=== PATIENT | male | born 1965 | race Caucasian/White ===

== ENCOUNTER → 2018-04-20 14:07 | Outpatient (CLI) | payer BC, SELFPAY ==
--- NOTE | 2018-04-20 14:09 | DI.RAD.S_ITS ---
PROCEDURE: XR CHEST 2V INDICATIONS: diffuse BL wheeze, please R/O consolidation TECHNIQUE: 2 views of the chest were acquired. COMPARISON: None. FINDINGS: Surgical changes and devices: None. Lungs and pleura: No pleural effusions or pneumothorax. Lungs are clear. Mediastinum: Mediastinal contours are normal. Heart size is normal. Bones and chest wall: No suspicious bony abnormalities. Soft tissues appear unremarkable. IMPRESSION: Normal for age, source of current symptoms is not seen. Dictated by: Donald Meraz M.D. on 04/20/2018 at 14:30 Approved by: Donald Meraz M.D. on 04/20/2018 at 14:30
== END ==
PROVIDERS: Family Provider Family Medicine; PCP Family Medicine; Visit Provider Physician Assistant
DX: R06.2 Wheezing (principal)
CPT/HCPCS: 71046

== ENCOUNTER 2018-08-20 08:59 | Emergency (ER) | payer BC, SELFPAY ==
[2018-08-20 09:10] VITALS: BP 147/94; PULSE 65; RESP 16; TEMP 36.6; O2SAT 99; BMI 31.7
--- NOTE | 2018-08-20 09:11 | DI.US.S_ITS ---
PROCEDURE: US PERIPH VENOUS LOW EXTREM RT INDICATIONS: redness TECHNIQUE: Real-time imaging, as well as color and pulse Doppler interrogation, were performed of the lower extremity deep veins from the inguinal ligament to the popliteal fossa. COMPARISON: None. FINDINGS: The deep veins are normally compressible, and free of intraluminal thrombus. Color and pulse Doppler demonstrate normal phasic intraluminal flow. There is normal augmentation response to distal compression maneuver. IMPRESSION: Negative for deep venous thrombosis. Dictated by: Shaun Damian M.D. on 08/20/2018 at 8:58 Approved by: Shaun Damian M.D. on 08/20/2018 at 8:58
--- NOTE | 2018-08-20 09:16 | ED_ITS ---
HPI - Extremity Injury (Lower) General Chief Complaint: Extremity Injury, Lower Stated Complaint: POSSIBLE BLOOD CLOT RIGHT LEG Time Seen by Provider: 08/20/18 09:15 Source: patient Mode of arrival: ambulatory Limitations: no limitations History of Present Illness HPI Narrative: Patient is a 52-year-old male here for evaluation of a possible blood clot in his right lower extremity. Patient states that almost 40 years ago he fractured his right femur which has healed. He also states that several years ago he had a right total knee arthroplasty. He states that a couple days ago he started having pain in his calf. This was occasional pain. He also states that he has had tingling in his right foot from the ankle to his toes. This tingling is circumferential. Patient also states that he has seen dilated superficial veins on his right lower extremity. He states that secondary to his prior femur and knee history he was concern for a blood clot in his right lower extremity. No recent travel. He has never had a blood clot the past. No shortness of breath or chest pain. Related Data Previous Rx's Medication Instructions Recorded benzonatate 100 mg capsule 100 mg PO TID PRN #30 cap 04/20/18 ipratropium bromide 17 2 puff INHALATION QID #12.9 gram 04/20/18 mcg/actuation HFA aerosol inhaler Allergies Allergy/AdvReac Type Severity Reaction Status Date / Time No Known Drug Allergies Allergy Verified 08/20/18 09:10 Review of Systems Constitutional Denies fever(s), Denies headache(s), Denies lethargy and Denies weakness ENT Ears, Nose, Mouth, and Throat: Denies dizziness, Denies headache(s) and Denies disequilibrium Cardiovascular Denies chest pain, Denies palpitations and Denies dyspnea Respiratory Denies cough and Denies dyspnea Gastrointestinal Gastrointestinal: Denies abdominal pain, Denies diarrhea, Denies nausea and Denies vomiting Genitourinary Denies dysuria Musculoskeletal Denies myalgias, Denies arthralgias, Denies numbness and Reports tingling ( Right foot) Comments: Right occasional calf pain, cramping Integumentary/Breasts Denies lesions and Denies rash Neurologic Denies dizziness, Denies headache(s), Denies numbness, Reports tingling (Right foot), Denies disequilibrium and Denies weakness Endocrine Denies palpitations Hematologic/Lymphatic Denies easy bleeding and Denies easy bruising [facility] Medical History Healthy adult (Acute) Surgical History History of total knee arthroplasty (Acute) No pertinent past surgical history (Acute) Exam Initial Vital Signs Initial Vital Signs: Vital Signs Temperature 97.8 F 08/20/18 09:10 Pulse Rate 65 08/20/18 09:10 Respiratory Rate 16 08/20/18 09:10 Blood Pressure 147/94 H 08/20/18 09:10 Pulse Oximetry 99 08/20/18 09:10 Const General: cooperative, healthy appearing, comfortable, well developed, well groomed and No acute distress Orientation: alert and oriented x3 HENMT Head: normal to inspection, normocephalic and atraumatic Resp Effort & Inspection: normal respiratory effort Cardio Pulses: dorsalis pedis present on the right Other: Patient with multiple varicose veins right lower extremity Skin Lesions: no lesions Rashes: no rashes Neuro Motor: muscle tone normal throughout Sensory Exam: no sensory deficits noted Extrem General: normal to inspection, capillary refill normal, no pedal edema, no calf tenderness (No calf tenderness on the right on my exam today) and No calf tenderness Psych Appearance: grossly normal and well kempt Course Orders Ordered: ED Orders 08/20/18 09:11 US [facility] venous low extrem rt Stat Vital Signs - 8 hr 08/20/18 11:03 08/20/18 11:06 Pulse Rate 81 Pulse Rate [Bilateral Radial] 84 Respiratory Rate 18 Blood Pressure [Right Arm] 156/87 H Pulse Oximetry 98 MDM - Extremity Injury (Lower) Imaging Data Venous US: Radiologist's impression: PROCEDURE: US [facility] VENOUS LOW EXTREM RT INDICATIONS: redness TECHNIQUE: Real-time imaging, as well as color and pulse Doppler interrogation, were performed of the lower extremity deep veins from the inguinal ligament to the popliteal fossa. COMPARISON: None. FINDINGS: The deep veins are normally compressible, and free of intraluminal thrombus. Color and pulse Doppler demonstrate normal phasic intraluminal flow. There is normal augmentation response to distal compression maneuver. IMPRESSION: Negative for deep venous thrombosis. Dictated by: Shaun Damian M.D. on 08/20/2018 at 8:58 Approved by: Shaun Damian M.D. on 08/20/2018 at 8:58 MDM Narrative Medical decision making narrative: No proximal right lower extremity DVT on ultrasound. Patient had no calf tenderness today and no objective neurologic findings. No trauma. Doubt fractures. He does have multiple varicose veins in his right lower extremity. We did discuss this. I feel that it is unlikely that he has a DVT in his right calf. He has no swelling. No pain today and is only occasional pain when it does come on. He is neurovascularly intact. Informed the patient he needed to discuss the paresthesias with his primary care doctor. He states that he is not diabetic. Will hold on further workup for now. He was given return precautions. All questions answered. He expressed understanding and agreement plan. Discharge Plan Departure Patient Disposition: Home Clinical Impression: Right leg paresthesias Discharge Date/Time: 08/20/18 11:07 Interventions: ED Discharge Assessment Last Done: 08/20/18 11:06 Instructions: DI for Numbness/tingling Activity Restrictions/Additional Instructions: Recommend that you continue all of your medications. Also recommend that you may contact with your new primary doctor over in the clinic. Follow up with this primary doctor to discuss further workup of your paresthesias. Return to the emergency department for any new or worsening symptoms Prescriptions: No Action benzonatate 100 mg capsule 100 mg PO TID PRN (Reason: cough) Qty: 30 RF: 0 ipratropium bromide 17 mcg/actuation HFA aerosol inhaler 2 puff INHALATION QID Qty: 12.9 RF: 0
[2018-08-20 11:03] VITALS: PULSE 84
[2018-08-20 11:06] VITALS: BP 156/87; PULSE 81; RESP 18; O2SAT 98
== END 2018-08-20 11:07 | disposition home or self-care (01) ==
PROVIDERS: Emergency Provider Emergency Medicine; Family Provider Family Medicine; PCP Family Medicine
DX: R20.2 Paresthesia of skin (principal)
CPT/HCPCS: 93971; 99282; 99284

== ENCOUNTER → 2018-08-22 13:21 | Outpatient (CLI) | payer BC, SELFPAY ==
[2018-08-22 14:02] LABS: Add Manual Diff / Slide Review NO; Basophils Percent Auto 0.9 % (0-2); Eosinophils Percent Auto 2.1 % (2-4); Hematocrit 41.8 % (41-53); Hemoglobin 14.2 g/dL (13.5-17.5); Lymphocytes Percent Auto 22.6 % (25-40); Mean Corpuscular Hemoglobin 31.2 PG (26-34); Mean Corpuscular Volume 91.5 fL (80-100); Monocytes Percent Auto 10.3 % (3-14); Neutrophils Absolute Auto 3900 /uL (3000-5900); Neutrophils Percent Auto 64.1 % (50-75); Platelet Count 333 X10^3/uL (150-400); Red Blood Cell Count 4.56 X10^6/uL (4.5-5.9); White Blood Cell Count 6.2 X10^3/uL (4.5-11.0)
[2018-08-22 14:10] LABS: Hemoglobin A1C% w Est Avg Glu 5.4 % (4.0-6.0)
[2018-08-22 14:24] LABS: Alanine Aminotransferase 31 IU/L (21-72); Albumin 4.6 g/dL (3.5-5.0); Albumin Globulin Ratio 1.7 (1.0-2.8); Alkaline Phosphatase 61 U/L (38-126); Aspartate Aminotransferase 32 IU/L (17-59); Bilirubin Unconjugated 0.7 mg/dL (0.0-1.1); Blood Urea Nitrogen 16 mg/dL (9-20); Calcium 9.6 mg/dL (8.4-10.2); Carbon Dioxide 28 mmol/L (22-32); Chloride 102 mmol/L (98-107); Cholesterol 203 mg/dL (140-199); Estimated Glomerular Filt Rate > 60.0 mL/min (>60); Globulin 2.7 g/dL (1.7-4.1); Glucose 99 mg/dL (70-100); HDL Cholesterol 88 mg/dL (40-60); HEMOLYSIS < 15 (0-50); LDL Cholesterol Calculated 98 mg/dL (<100); Potassium 3.8 mmol/L (3.4-5.1); Sodium 140 mmol/L (137-145); Total Protein 7.3 g/dL (6.3-8.2); Triglycerides 84 mg/dL (35-150); Uric Acid 6.7 mg/dL (3.5-8.5)
== END ==
PROVIDERS: PCP Family Medicine; Visit Provider Nurse Practitioner Family
DX: Z00.00 Encounter for general adult medical examination without abnormal findings (principal)
CPT/HCPCS: 36415; 80053; 80061; 80076; 83036; 84550; 85025

== ENCOUNTER → 2018-09-29 13:41 | Outpatient (CLI) | payer BC, SELFPAY ==
--- NOTE | 2018-09-29 13:42 | DI.US.S_ITS ---
PROCEDURE: US ARTERIAL DUPLEX LE RT INDICATIONS: Calf pain TECHNIQUE: Color and pulse Doppler interrogation was performed of the right than the lower extremity arterial system, with image documentation. COMPARISON: [facility], , PERIP VENOUS LOW EXTREM RT, 09/29/2018, 14:42. FINDINGS: Common femoral artery: 102 cm/sec, with triphasic flow. Deep femoral artery: 76 cm/sec, with triphasic flow. Proximal superficial femoral artery: 76 cm/sec, with triphasic flow. Mid superficial femoral artery: 66 cm/sec, with triphasic flow. Distal superficial femoral artery: Occluded. Popliteal artery: Taoist of blood flow, with a flow velocity of 27 cm/sec, with monophasic flow. Posterior tibial artery: 48 cm/sec, with biphasic flow. Anterior tibial artery/dorsalis pedis: 60 cm/sec, with monophasic flow. Lee-scale imaging description: There is an occlusion seen within the right distal superficial femoral artery, with the appearance of an embolus. IMPRESSION: There is an occlusion seen within the distal right superficial femoral artery, which is attributed to an embolus. There is islam of flow seen at the level of the popliteal artery. Note: Findings relayed to Dr. Gunn via office staff, Sara, at 4:50 PM [place] time on September 29, 2018. Dictated by: Shaun Damian M.D. on 09/29/2018 at 15:45 Approved by: Shaun Damian M.D. on 09/29/2018 at 15:51
--- NOTE | 2018-09-29 13:42 | DI.US.S_ITS ---
PROCEDURE: US PERIP VENOUS LOW EXTREM RT INDICATIONS: Calf pain TECHNIQUE: Real-time imaging, as well as color and pulse Doppler interrogation, were performed of the lower extremity deep veins from the inguinal ligament to the popliteal fossa. COMPARISON: [facility], ARTERIAL DUPLEX LE RT, 09/29/2018, 14:52. [facility], US PERIP VENOUS LOW EXTREM RT, 08/20/2018, 9:33. FINDINGS: The deep veins are normally compressible, and free of intraluminal thrombus. Color and pulse Doppler demonstrate normal phasic intraluminal flow. There is normal augmentation response to distal compression maneuver. IMPRESSION: Negative for deep venous thrombosis. Dictated by: Shaun Damian M.D. on 09/29/2018 at 15:45 Approved by: Shaun Damian M.D. on 09/29/2018 at 15:45
== END ==
PROVIDERS: Family Provider Family Medicine; PCP Family Medicine; Visit Provider Student in an Organized Health Care Education/Training Program
DX: I74.3 Embolism and thrombosis of arteries of the lower extremities (principal); I73.9 Peripheral vascular disease, unspecified; M79.661 Pain in right lower leg
CPT/HCPCS: 93926; 93971

== ENCOUNTER → 2019-05-29 15:17 | Outpatient (CLI) | payer BC, SELFPAY | PROVIDERS: Family Provider Family Medicine; PCP Student in an Organized Health Care Education/Training Program; Visit Provider Registered Nurse | DX: M20.40 Other hammer toe(s) (acquired), unspecified foot (principal) | CPT/HCPCS: 87070; 87075; 87077; 87186; 87205 ==

== ENCOUNTER → 2019-05-29 16:01 | Outpatient (CLI) | payer BC, SELFPAY ==
--- NOTE | 2019-05-29 16:04 | DI.RAD.S_ITS ---
PROCEDURE: XR TOE RT MIN 2V INDICATIONS: R/o osteomyelitis TECHNIQUE: 3 views of the first toe(s) acquired. COMPARISON: None. FINDINGS: Bones: No fractures or dislocations. No suspicious bony lesions. Soft tissues: No suspicious soft tissue densities. IMPRESSION: No bony erosions. X-ray is not sensitive for early osteomyelitis. If clinical suspicion is high, MRI with and without contrast or a triple phase bone scan is suggested for further evaluation. Dictated by: Lorenzo Gerardo M.D. on 05/29/2019 at 16:26 Approved by: Lorenzo Gerardo M.D. on 05/29/2019 at 16:27
== END ==
PROVIDERS: PCP Student in an Organized Health Care Education/Training Program; Visit Provider Student in an Organized Health Care Education/Training Program
DX: L08.9 Local infection of the skin and subcutaneous tissue, unspecified (principal); M79.674 Pain in right toe(s); M20.40 Other hammer toe(s) (acquired), unspecified foot
CPT/HCPCS: 73660; 87070; 87077; 87186; 87205

== ENCOUNTER → 2019-06-18 11:54 | Outpatient (CLI) | payer BC, SELFPAY ==
[2019-06-18 12:26] LABS: Add Manual Diff / Slide Review NO; Basophils Absolute Auto 100 /uL (0-100); Basophils Percent Auto 1.3 % (0-2); Eosinophils Absolute Auto 200 /uL (0-450); Eosinophils Percent Auto 3.5 % (2-4); Hematocrit 39.6 % (41-53); Hemoglobin 13.3 g/dL (13.5-17.5); Lymphocytes Absolute Auto 1400 /uL (1100-4500); Lymphocytes Percent Auto 26.1 % (25-40); Mean Corpuscular HGB Conc 33.7 % (30-36); Mean Corpuscular Hemoglobin 30.9 PG (26-34); Mean Corpuscular Volume 91.6 fL (80-100); Monocytes Absolute Auto 600 /uL (0-900); Monocytes Percent Auto 10.6 % (3-14); Neutrophils Absolute Auto 3200 /uL (1500-7000); Neutrophils Percent Auto 58.5 % (50-75); Platelet Count 295 X10^3/uL (150-400); Red Blood Cell Count 4.32 X10^6/uL (4.5-5.9); Red Cell Distribution Width 14.3 % (11.6-14.8); White Blood Cell Count 5.4 X10^3/uL (4.5-11.0)
[2019-06-18 12:32] LABS: Hemoglobin A1C% w Est Avg Glu 5.3 % (4.0-6.0)
[2019-06-18 12:42] LABS: Erythrocyte Sedimentation Rate 6 MM/HR (0-15)
[2019-06-18 13:07] LABS: BUN Creatinine Ratio 17.5 (6-22); Blood Urea Nitrogen 14 mg/dL (9-20); C-Reactive Protein Quant 0.6 mg/dL (<1.0); Calcium 9.5 mg/dL (8.4-10.2); Carbon Dioxide 28 mmol/L (22-32); Chloride 103 mmol/L (98-107); Estimated Glomerular Filt Rate > 60.0 mL/min (>60); Glucose 88 mg/dL (70-100); HEMOLYSIS < 15 (0-50); Potassium 4.2 mmol/L (3.4-5.1); Sodium 140 mmol/L (137-145)
== END ==
PROVIDERS: PCP Student in an Organized Health Care Education/Training Program; Visit Provider Podiatrist
DX: S91.302A Unspecified open wound, left foot, initial encounter (principal)
CPT/HCPCS: 36415; 80048; 83036; 85025; 85651; 86140

== ENCOUNTER → 2019-06-24 14:22 | Outpatient (CLI) | payer BC, SELFPAY | PROVIDERS: PCP Student in an Organized Health Care Education/Training Program; Visit Provider Family Medicine | DX: S91.301A Unspecified open wound, right foot, initial encounter (principal); L89.893 Pressure ulcer of other site, stage 3; I74.3 Embolism and thrombosis of arteries of the lower extremities; I70.211 Atherosclerosis of native arteries of extremities with intermittent claudication, right leg | CPT/HCPCS: 11042; 87070; 87075; 87077; 87186; 87205; 93922; 99203; 99214 ==

== ENCOUNTER → 2019-07-01 10:00 | Outpatient (CLI) | payer BC, SELFPAY | PROVIDERS: PCP Student in an Organized Health Care Education/Training Program; Visit Provider Family Medicine | DX: L89.893 Pressure ulcer of other site, stage 3 (principal) | CPT/HCPCS: 99212; 99213 ==

== ENCOUNTER → 2019-07-08 09:03 | Outpatient (CLI) | payer BC, SELFPAY | PROVIDERS: PCP Student in an Organized Health Care Education/Training Program; Visit Provider Family Medicine | DX: L89.893 Pressure ulcer of other site, stage 3 (principal); M20.41 Other hammer toe(s) (acquired), right foot; M79.671 Pain in right foot; I74.3 Embolism and thrombosis of arteries of the lower extremities | CPT/HCPCS: 11042 ==

== ENCOUNTER → 2019-07-15 10:08 | Outpatient (CLI) | payer BC, SELFPAY | PROVIDERS: PCP Student in an Organized Health Care Education/Training Program; Visit Provider Family Medicine | DX: S91.301A Unspecified open wound, right foot, initial encounter (principal); L89.893 Pressure ulcer of other site, stage 3; I74.3 Embolism and thrombosis of arteries of the lower extremities; I70.211 Atherosclerosis of native arteries of extremities with intermittent claudication, right leg | CPT/HCPCS: 97597 ==

== ENCOUNTER → 2019-07-22 06:29 | Outpatient (CLI) | payer BC, SELFPAY ==
--- NOTE | 2019-07-22 | DI.MRI.S_ITS ---
PROCEDURE: MR FOOT RT WO/W CON INDICATIONS: UNSPECIFIED OPEN WOUND,RIGHT FOOT TECHNIQUE: Noncontrast sagittal T1 spin echo and T2 fast spin echo with fat saturation, long-axis T1 spin echo and T2 fast spin echo with fat saturation; short-axis T1 spin echo, proton density fast spin echo, and T2 fast spin echo with fat saturation through the forefoot. Post-contrast short axis, long axis, and sagittal T1 spin echo with fat saturation through the forefoot. COMPARISON: [facility], CR, XR TOE(S) RIGHT, 06/17/2019, 15:53. [facility], CR, XR TOE RT MIN 2V, 05/29/2019, 16:05. FINDINGS: Image quality: Diagnostic. Bones and joints: No acute fracture, dislocation, or suspicious osseous lesion is identified involving the osseous structures of the midfoot or hindfoot. There are moderate degenerative changes present involving the tarsometatarsal joints with areas of degenerative marrow edema/reactive marrow changes. There are also mild degenerative changes involving the tarsonavicular and metatarsophalangeal joints. No definite osseous erosions are appreciated. No significant joint effusions are evident. No suspicious osseous enhancement is identified on the postcontrast images. Soft tissues: Mild soft tissue edema about the forefoot is identified. No drainable or loculated fluid collections are appreciated. There is no significant atrophy involving the intrinsic muscles of the foot. The flexor and extensor tendons of the midfoot and forefoot appear to be within normal limits. However, there may be mild distal anterior tibialis tendinopathy. The Lisfranc ligament is intact. No soft tissue masses or suspicious soft tissue enhancement is identified. No significant atrophy involving the intrinsic muscles of the foot are evident. IMPRESSION: 1. Mild soft tissue edema of the right foot may represent cellulitis. No abscess is evident. 2. No convincing evidence of osteomyelitis. 3. Mild to moderate degenerative changes of the midfoot and forefoot joints are more prominent involving the tarsometatarsal joints with areas of moderate reactive/degenerative marrow edema present. Dictated by: Johann Palmer M.D. on 07/22/2019 at 11:16 Approved by: Johann Palmer M.D. on 07/22/2019 at 11:20
== END ==
PROVIDERS: PCP Student in an Organized Health Care Education/Training Program; Visit Provider Family Medicine
DX: S91.301A Unspecified open wound, right foot, initial encounter (principal)
CPT/HCPCS: 73720; A9579

== ENCOUNTER → 2019-07-29 08:39 | Outpatient (CLI) | payer BC, SELFPAY | PROVIDERS: PCP Student in an Organized Health Care Education/Training Program; Visit Provider Family Medicine | DX: S91.301A Unspecified open wound, right foot, initial encounter (principal); L89.893 Pressure ulcer of other site, stage 3; I74.3 Embolism and thrombosis of arteries of the lower extremities; I70.211 Atherosclerosis of native arteries of extremities with intermittent claudication, right leg; L03.115 Cellulitis of right lower limb | CPT/HCPCS: 97597; 99214 ==

== ENCOUNTER → 2019-08-05 09:34 | Outpatient (CLI) | payer BC, SELFPAY | PROVIDERS: PCP Student in an Organized Health Care Education/Training Program; Visit Provider Family Medicine | DX: L89.893 Pressure ulcer of other site, stage 3 (principal); I74.3 Embolism and thrombosis of arteries of the lower extremities; I70.211 Atherosclerosis of native arteries of extremities with intermittent claudication, right leg | CPT/HCPCS: 97597 ==

== ENCOUNTER → 2019-08-11 09:34 | Outpatient (CLI) | payer BC, SELFPAY | PROVIDERS: PCP Student in an Organized Health Care Education/Training Program; Visit Provider Family Medicine | DX: L89.893 Pressure ulcer of other site, stage 3 (principal); I74.3 Embolism and thrombosis of arteries of the lower extremities | CPT/HCPCS: 97597; 99213 ==

== ENCOUNTER → 2019-08-21 09:22 | Outpatient (CLI) | payer BC, SELFPAY ==
[2019-08-21 10:03] LABS: Add Manual Diff / Slide Review NO; Basophils Absolute Auto 100 /uL (0-100); Basophils Percent Auto 1.3 % (0-2); Eosinophils Absolute Auto 200 /uL (0-450); Eosinophils Percent Auto 4.3 % (2-4); Hemoglobin 14.8 g/dL (13.5-17.5); Lymphocytes Absolute Auto 1500 /uL (1100-4500); Lymphocytes Percent Auto 30.1 % (25-40); Mean Corpuscular HGB Conc 34.3 % (30-36); Mean Corpuscular Hemoglobin 31.9 PG (26-34); Monocytes Absolute Auto 500 /uL (0-900); Monocytes Percent Auto 10.8 % (3-14); Neutrophils Absolute Auto 2700 /uL (1500-7000); Neutrophils Percent Auto 53.5 % (50-75); Platelet Count 354 X10^3/uL (150-400); Red Blood Cell Count 4.63 X10^6/uL (4.5-5.9); White Blood Cell Count 5.1 X10^3/uL (4.5-11.0)
[2019-08-21 10:47] LABS: BUN Creatinine Ratio 27.5 (6-22); Blood Urea Nitrogen 22 mg/dL (9-20); Calcium 9.8 mg/dL (8.4-10.2); Carbon Dioxide 30 mmol/L (22-32); Chloride 98 mmol/L (98-107); Estimated Glomerular Filt Rate > 60.0 mL/min (>60); Glucose 128 mg/dL (70-100); HEMOLYSIS < 15 (0-50); Potassium 4.5 mmol/L (3.4-5.1); Sodium 137 mmol/L (137-145)
== END ==
PROVIDERS: PCP Student in an Organized Health Care Education/Training Program; Visit Provider Podiatrist
DX: Z01.818 Encounter for other preprocedural examination (principal); Z01.812 Encounter for preprocedural laboratory examination
CPT/HCPCS: 36415; 80048; 85025; 93005; 93010

== ENCOUNTER → 2020-02-18 09:53 | Outpatient (CLI) | payer BC, SELFPAY ==
[2020-02-18 12:24] LABS: Influenza A - CEPHEID Flu A NEGATIVE (NEGATIVE); Influenza B - CEPHEID Flu B NEGATIVE (NEGATIVE)
[2020-02-20 15:36] LABS: COVID19 Sendout Not Detected (Not Detected)
== END ==
PROVIDERS: PCP Student in an Organized Health Care Education/Training Program; Visit Provider Family Medicine
DX: R05 Cough (principal); R06.02 Shortness of breath
CPT/HCPCS: 87502; 87635

== ENCOUNTER → 2021-11-03 12:46 | Outpatient (CLI) | payer BC, SELFPAY ==
[2021-11-03 13:20] LABS: COVID19 -Nasal RAPID POSITIVE (Negative)
== END ==
PROVIDERS: PCP Student in an Organized Health Care Education/Training Program; Visit Provider Physician Assistant
DX: U07.1 COVID-19 (principal); Z20.822 Contact with and (suspected) exposure to COVID-19; R19.7 Diarrhea, unspecified; R53.83 Other fatigue
CPT/HCPCS: 87635

== ENCOUNTER → 2023-01-17 14:53 | Outpatient (CLI) | payer BC, SELFPAY ==
[2023-01-17 15:41] LABS: Alanine Aminotransferase 26 IU/L (<50); Albumin 4.8 g/dL (3.5-5.0); Albumin Globulin Ratio 1.4 (1.0-2.8); Alkaline Phosphatase 54 U/L (38-126); Aspartate Aminotransferase 26 IU/L (17-59); BUN Creatinine Ratio 25.3 (6-22); Bilirubin Total 0.5 mg/dL (0.2-1.3); Blood Urea Nitrogen 19 mg/dL (9-20); Calcium 9.4 mg/dL (8.4-10.2); Carbon Dioxide 31 mmol/L (22-32); Chloride 97 mmol/L (98-107); Cholesterol 277 mg/dL (140-199); Estimated Glomerular Filt Rate > 60 mL/min (>60); Globulin 3.5 g/dL (1.7-4.1); Glucose 70 mg/dL (70-100); HDL Cholesterol 60 mg/dL (40-60); HEMOLYSIS < 15 (0-50); LDL Cholesterol Calculated 202 mg/dL (<100); Potassium 4.5 mmol/L (3.4-5.1); Sodium 135 mmol/L (137-145); Total Protein 8.3 g/dL (6.3-8.2); Triglycerides 74 mg/dL (35-150)
[2023-01-17 15:56] LABS: Vitamin D 25 Hydroxy (D3) 26.4 ng/mL (30.0-100.0)
[2023-01-17 16:11] LABS: Prostate Specific Antigen Scrn 0.886 ng/mL (0.1-4.0)
[2023-01-17 16:34] LABS: Hep C Virus Ab w/Reflex Quant NEGATIVE s/c (NEGATIVE)
== END ==
PROVIDERS: PCP Student in an Organized Health Care Education/Training Program; Referring Provider Student in an Organized Health Care Education/Training Program; Visit Provider Student in an Organized Health Care Education/Training Program
DX: Z11.59 Encounter for screening for other viral diseases (principal); Z13.220 Encounter for screening for lipoid disorders; E55.9 Vitamin D deficiency, unspecified; F32.9 Major depressive disorder, single episode, unspecified; Z12.5 Encounter for screening for malignant neoplasm of prostate; E78.00 Pure hypercholesterolemia, unspecified; F10.21 Alcohol dependence, in remission; Z78.9 Other specified health status
CPT/HCPCS: 36415; 80053; 80061; 82306; 86803; G0103

== ENCOUNTER 2023-09-12 11:12 | Day surgery (SDC) | payer OTHER, SELFPAY ==
[2023-09-12 12:15] VITALS: BP 146/86; PULSE 54; RESP 16; TEMP 36.3; O2SAT 96; BMI 30.8
--- NOTE | 2023-09-12 13:05 | PM.HP.1 ---
History of Present Illness History of Present Illness Date Patient Seen: 09/12/23 Time Patient Seen: 13:05 Chief complaint: [facility] Narrative: Onur is a 58-year-old man who is here for colonoscopy. He believes his last colonoscopy was about 10 years ago and he believes some polyps found. [facility] Medical History (Updated 09/12/23 @ 13:06 by Kendall Bryant MD) COVID-19 Hammer toe Hx of fracture of femur (~1979) Hypertension Surgical History (Updated 01/18/23 @ 13:13 by Dom Gunn MD) History of total knee arthroplasty (07/2016) No pertinent past surgical history Family History Father No problems noted. Mother No problems noted. Social History household members: spouse Smoking Status: Never smoker alcohol intake: former Meds Home Medications and Allergies Home Medications Medication Instructions Recorded Confirmed Type aspirin 81 mg tablet,delayed 81 mg PO DAILY 07/29/19 09/12/23 History release (Aspir-) paroxetine HCl 20 mg tablet 40 mg (2 x 20 mg) PO DAILY #180 10/23/22 09/12/23 Rx tabs cholecalciferol (vitamin D3) 125 125 mcg PO DAILY #90 caps 01/18/23 Rx mcg (5,000 unit) capsule sildenafil 50 mg tablet 50 mg PO DAILY PRN sexual activity 04/16/23 09/12/23 Rx #30 tabs gabapentin 300 mg capsule 300 mg PO TID 09/12/23 09/12/23 History Allergies Allergy/AdvReac Type Severity Reaction Status Date / Time No Known Drug Allergies Allergy Verified 09/12/23 12:01 Exam Vital Signs (past 8 hours): - 09/12/23 12:15 Temperature 97.4 F L Pulse Rate 54 L Respiratory Rate 16 Blood Pressure 146/86 H Pulse Oximetry 96 Oxygen Delivery Method Room Air Oxygen Delivery Method Room Air Const General: No acute distress Resp Effort & Inspection: normal respiratory effort Assessment & Plan Assessment and plan (1) Colon cancer screening: Status: Acute Plan We reviewed the risks and benefits of colonoscopy for colon cancer screening and he like to proceed.
[2023-09-12] MEDS: LACTATED RINGERS 1,000 ML 100 ML IV (13:20)
--- NOTE | 2023-09-12 13:43 | PM.OP.COLON ---
Operative Date/Time/Diagnoses Date of procedure: 09/12/23 Time of procedure: 13:43 Pre-op diagnosis: Colon cancer screening Post-op diagnosis: same Procedure & Clinicians Study performed: Colonoscopy Same procedure as scheduled: Yes Surgeon: Kendall Bryant Procedure Notes Procedure in detail: Surgeon: Kendall Bryant MD Anesthesia: Sarah Nick CRNA Procedure: The patient was brought to the endoscopy suite, placed in left lateral decubitus position. The patient was connected to monitoring devices. A time-out was performed. Sedation was administered. Once the patient was adequately sedated, a digital rectal exam was performed and was normal. The scope was then inserted and advanced to the cecum where the appendiceal orifice was identified and photographed. The scope was then slowly withdrawn over greater than 6 minutes. The mucosa was thoroughly inspected. No polyps were found. The scope was retroflexed in the rectum. Internal hemorrhoids were noted. The scope was straightened and removed. The patient was awakened and brought to recovery. Scope withdrawal time: 13 minutes Sedation time: 20 minutes EBL: 0 Findings: Normal colon, internal hemorrhoids Post-procedure Disposition: PACU
[2023-09-12 13:52] VITALS: BP 122/82; PULSE 45; RESP 16; TEMP 36.8; O2SAT 98
[2023-09-12 13:56] VITALS: BP 125/82; PULSE 51; RESP 16; O2SAT 98
[2023-09-12 14:05] VITALS: BP 122/70; PULSE 78; RESP 16; O2SAT 98
== END 2023-09-12 14:17 | disposition home or self-care (01) ==
PROVIDERS: Referring Provider Surgery; Visit Provider Surgery
PROC: 0DJD8ZZ Inspection of Lower Intestinal Tract, Via Natural or Artificial Opening Endoscopic (ICD-10-PCS; CPT 45378; principal; 2023-09-12 12:15)
DX: Z12.11 Encounter for screening for malignant neoplasm of colon (principal); K64.8 Other hemorrhoids
CPT/HCPCS: 45378; J2704